=== PATIENT | male | born 1965 | race Caucasian/White ===

== ENCOUNTER 2020-12-16 08:42 | Emergency (ER) | payer OTHER ==
[~2020-12-16 08:42] MED LIST: IMODIUM2 MG PO; METRONIDAZOLE500 MG PO; ZANTAC150 MG PO
== END 2020-12-16 09:38 | disposition home or self-care (01) ==
LOC: FER 08:42
DX: S61.230A Puncture wound without foreign body of right index finger without damage to nail, initial encounter (principal); E11.9 Type 2 diabetes mellitus without complications; Z23 Encounter for immunization; W26.9XXA Contact with unspecified sharp object(s), initial encounter
CPT/HCPCS: 73130; 90471; 90715

== ENCOUNTER 2021-12-27 16:57 | Emergency (ER) | payer OTHER ==
[2021-12-27] MEDS ORDERED: VIBRAMYCIN100 MG PO (19:34)
== END 2021-12-27 20:04 | disposition home or self-care (01) ==
LOC: FER 16:57
DX: S91.311A Laceration without foreign body, right foot, initial encounter (principal); Z23 Encounter for immunization; Z88.0 Allergy status to penicillin; W26.8XXA Contact with other sharp object(s), not elsewhere classified, initial encounter; Y92.009 Unspecified place in unspecified non-institutional (private) residence as the place of occurrence of the external cause
CPT/HCPCS: 90471; 90715